=== PATIENT | female | born 1980 | race Caucasian/White ===

== ENCOUNTER 2021-09-23 10:33 | Day surgery (SDC) | payer BC ==
--- NOTE | 2021-09-20 11:46 | EKG ---
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
[2021-09-23] MEDS ORDERED: Ringers Lactate 1,000 ML IV ONE ×2 (10:53→16:45)
[2021-09-23 11:14] LABS: Specific Gravity 1.025 (1.005-1.030)
[2021-09-23] MEDS ORDERED: LIDOCAINE 1% W/EPI 1:100,000 MDV 20 ML VIAL ONE (13:23)
[2021-09-23] MEDS ORDERED: OXYMETAZOLINE HCL 0.05% 15ML NAS ONE ×4 (13:23→13:50)
[2021-09-23] MEDS ORDERED: MIDAZOLAM HCL 2 MG/2 ML INJ ONE (13:34)
[2021-09-23] MEDS ORDERED: propofoL 200 MG/20 ML VIAL IV ONE (13:34)
[2021-09-23] MEDS ORDERED: BACITRACIN OINTMENT 14 GM TUBE TOP ONE (13:35)
[2021-09-23] MEDS ORDERED: GLYCOPYRROLATE 0.2 MG/ML SYR ONE ×2 (13:35→13:36)
[2021-09-23] MEDS ORDERED: FENTANYL CITR 250 MCG/5 ML ONE (13:37)
[2021-09-23] MEDS ORDERED: ROCURONIUM 50 MG/5 ML VIAL IV ONE (13:38)
[2021-09-23] MEDS ORDERED: ONDANSETRON 4 MG/2 ML VIAL ONE ×2 (13:40→17:25)
[2021-09-23] MEDS ORDERED: NEOSTIGMINE 1 MG/ML -5 ML ONE (13:43)
[2021-09-23] MEDS ORDERED: LIDOCAINE JELLY 2%- 5 ML TUBE ONE (13:44)
[2021-09-23] MEDS ORDERED: dexAMETHasone 10 MG/ML VIAL ONE (13:46)
[2021-09-23] MEDS ORDERED: SCOPOLAMINE HYDROBROMIDE PATCH TD ONE (14:05)
[2021-09-23] MEDS ORDERED: LIDOCAINE 2% MPF 5 ML VIAL ONE (14:41)
[2021-09-23] MEDS ORDERED: ALBUTEROL INHALER 60 PUFF/8 GM IH ONE (15:11)
[2021-09-23] MEDS ORDERED: LANO/MINERAL OIL/PETRO 3.5 GM ONE (15:13)
[2021-09-23] MEDS ORDERED: Phenylephrine HCl 10 MG/ML 1 ML VIAL ONE (15:40)
[2021-09-23] MEDS ORDERED: NS 0.9% VIAL 10 ML ONE (15:41)
[2021-09-23] MEDS ORDERED: DIPHENHYDRAMINE 50 MG/ML VIAL ONE (17:08)
[2021-09-23] MEDS ORDERED: PROMETHAZINE INJ 25 MG/ML AMP ONE (17:15)
[2021-09-23] MEDS ORDERED: HYDROMORPHONE HCL 1 MG/ML INJ ONE (17:28)
[2021-09-23 17:40] VITALS: O2SAT 96
[2021-09-23] MEDS ORDERED: ACETAMINOPHEN 325 MG TABLET ONE (17:55)
[2021-09-23 18:55] VITALS: BP 131/69; TEMP 98
--- NOTE | 2021-09-30 15:54 | OP ---
Date of Procedure: 09/23/2021 Surgeon: Starla Adams MD Preoperative Diagnoses: Bilateral chronic maxillary and sphenoid sinusitis with chronic right maxill beth sinusitis. Procedure: Nasal endoscopy with balloon sinuplasty of sphenoid sinuses and nasal endoscopy with bila teral maxillary antrostomy and right ethmoidectomy with image guidance. Indication For Procedure: Alia Green presented with chronic rhinosinusitis. She was treated with ma ximal medical therapy and underwent post treatment CT scan, which demonstrated partial opacification of the bilateral maxillary sinuses, bilateral sphenoid sinuses and partial opacification of the right ethmoid sinuses. She also had some septal deviation toward the right side. Additional radiographic findings included a pneumatized left uncinate process and a significant infraorbital ethmoid cell, w hich impacted the maxillary sinus outflow tract. The risks, benefits, and alternatives to the proced ure were discussed with the patient, who agreed to proceed. Description Of Procedure: The patient was brought to the operating room. She was placed under gener al anesthesia via oral endotracheal tube. The head of bed was turned 90 degrees. The nasal hairs we re trimmed and the nasal cavity was packed with Afrin-soaked pledgets. The [employer] image guidance sys tem was loaded with the patient's post treatment CT data and registration was performed in accordance with odd job worker's instructions. Accuracy was confirmed with [id number] matching at the glabel la and the bilateral medial and lateral canthi and accuracy was felt to be very good. The 0-degree e ndoscope was used to perform a nasal endoscopy with no significant purulence noted during the exam. There was [id number] clear mucus and some irregularity of the left uncinate process consistent with patient's CT findings. The [employer] balloon dilation system was prepared in accordance with pavan dunne's direction and used to cannulate, dilate and irrigate the bilateral sphenoid sinuses. Due to the narrowness of the right nasal cavity, an image guidance wire was placed to aid in navigation and cannulation of the right sphenoid ostium. No significant purulence was noted within the sphenoid cavities during irrigation. After left and right dilation, attention was turned to the maxillary an d middle meatus. The uncinate processes were both injected with 1% lidocaine with epinephrine. A ba ckbiter and 90-degree Blakesley were used to remove the uncinate process and a 30 and 70 degree scope were used to visualize the created antrostomy. The right side was narrow, but appeared patent. The left uncinate process was removed in several portions consistent with its pneumatization. After rem oval of the uncinate, the 70-degree scope was used to visualize revealing a very small meatus, which was significantly obstructed by the presence of the infraorbital ethmoid cell. The image guidance sy stem was used to help identify and confirm the borders of the infraorbital cell in order to avoid dam age to the orbit or orbital contents. A curette was used to incise through the bone of the infraorbi doris ethmoid cell and partitions were removed using the 90-degree Blakesley. The maxillary antrostomy was subsequently much more open and appeared patent. The ethmoid bulla remained intact and Afrin-so aked pledgets were applied to aid in hemostasis. The 0-degree endoscope was then used to navigate th rough the middle meatus on the right side and the curette, 90-degree straight Blakesley and 45-degree Blakesley were used to remove ethmoid partitions. The navigation suction was used to aid in identif ication of critical structures including the lamina and the anterior aspect of the skull base in the region of the cribriform plate. Navigation also confirmed entry and adequate dissection of the ethmo id cells of interest based on the preoperative CT scan. No significant purulence or obvious clinical polyp was noted. The ethmoid cavity was packed with Afrin-soaked pledgets after several minutes. A ll pledgets were removed. The nasal cavity was thoroughly inspected. Bleeding was very minimal. Du e to the narrowness of the right nasal cavity, decision was made for placement of steroid eluting pro pel implant in order to provide stabilization and prevent adhesions within the cavity. A propel mini was placed within the right ethmoid cavity under 0-degree endoscopic visualization. A propel contou r was placed in a similar fashion into the right maxillary antrostomy. The nasal cavity was thorough ly suctioned. The patient was returned to care of Anesthesia for awakening and extubation in the ope rating room, which proceeded without difficulty. Complications: None. Disposition: The patient will be discharged home later today and follow up with Dr. Adams's office in 10 days with standard nasal precautions. COREY/RULA Voice ID: [id number] Report ID: [id number]
== END 2021-09-23 18:55 | disposition home or self-care (01) ==
LOC: OR 10:33
PROVIDERS: ATTEND Otolaryngology
PROC: 09QW4ZZ Repair Right Sphenoid Sinus, Percutaneous Endoscopic Approach (ICD-10-PCS; 2021-09-23)
PROC: 099X8ZZ Drainage of Left Sphenoid Sinus, Via Natural or Artificial Opening Endoscopic (ICD-10-PCS; 2021-09-23)
PROC: 099W8ZZ Drainage of Right Sphenoid Sinus, Via Natural or Artificial Opening Endoscopic (ICD-10-PCS; 2021-09-23)
PROC: 09QX4ZZ Repair Left Sphenoid Sinus, Percutaneous Endoscopic Approach (ICD-10-PCS; principal; 2021-09-23 12:15)
DX: J01.01 Acute recurrent maxillary sinusitis (principal); J32.2 Chronic ethmoidal sinusitis; J32.3 Chronic sphenoidal sinusitis; J32.0 Chronic maxillary sinusitis; J34.2 Deviated nasal septum; E66.3 Overweight; F10.99 Alcohol use, unspecified with unspecified alcohol-induced disorder; Z20.822 Contact with and (suspected) exposure to COVID-19
CPT/HCPCS: 93005; 81025; 88305; 88311; 31256; 31254; 31297; U0002; J2704; J2550; J1200; J2370; J2250; J3010; J1100; J1170; J2710; J7120 ×2; J2405 ×2